=== PATIENT | male | born 1955 | race Caucasian/White ===

== ENCOUNTER 2018-08-23 00:51 | Emergency (ER) | payer OTHER ==
[~2018-08-23] VITALS: Ht 188 cm; Wt 107.5 kg
[2018-08-23 01:14] VITALS: Ht 188 cm; Wt 107.5 kg
[2018-08-23 03:40] VITALS: BP 137/90
== END 2018-08-23 03:40 | disposition home or self-care (01) ==
LOC: ED 00:51
DX: R33.9 Retention of urine, unspecified (principal); K59.00 Constipation, unspecified; G89.29 Other chronic pain; I10 Essential (primary) hypertension; E11.9 Type 2 diabetes mellitus without complications; E78.00 Pure hypercholesterolemia, unspecified; Z88.5 Allergy status to narcotic agent
CPT/HCPCS: J1885

== ENCOUNTER 2020-07-22 13:39 | Emergency (ER) | payer OTHER ==
[~2020-07-22] VITALS: Ht 185.4 cm; Wt 113.4 kg
[~2020-07-22 13:39] MED LIST: ATORVASTATIN CA80 M1; COLACE100 MG PO; CYCLOBENZAPRINE10 M1 PO; CYCLOBENZAPRINE10 MG; FLOMAX0.4 MG PO; HYDROXYZIN10 MG/5 M2; HYDROXYZIN10 MG/5 M2 PO; IBU800 M2 PO; JANUVIA100 M1; LIPITOR80 MG GT; LOT10; LOTENSIN PO; OXYCODONE HCL20 M1; OXYCODONE HCL20 M1 PO; PANTOPRAZOLE SO40 M1; PROTONIX40 MG/Pac1 PO; SERTRALINE H20 MG/ML; ZOLOFT50 MG PO
[2020-07-22 13:47] VITALS: Ht 185.4 cm; Wt 113.4 kg
[2020-07-22 14:30] LABS: CALCIUM 8.8 mg/dL (8.5-10.1); CHLORIDE SERUM 102 mmol/L (98-107); CREATININE SERUM 0.9 mg/dL (0.7-1.3); GFR1 > 60 mL/min; GLUCOSE SERUM 230 mg/dL (74-106); POTASSIUM SERUM 4.3 mmol/L (3.5-5.1); SODIUM SERUM 138 mmol/L (136-145)
[2020-07-22 14:34] LABS: ALBUMIN 3.5 g/dL (3.4-5.0); ALKALINE PHOSPHATASE 165 U/L (46-116); ALT/SGPT 79 U/L (16-63); AST/SGOT 26 U/L (15-37); BILIRUBIN TOTAL 0.2 mg/dL (0.20-1.00); LIPASE 273 IU/L (73-393); TOTAL PROTEIN, SERUM 7.5 g/dL (6.4-8.2)
[2020-07-22 14:36] LABS: BASOPHIL % 0.6 % (0.2-1.5); PLATELET COUNT 230 x10^3mcL (152-348); RED CELL DISTRIBUTION WIDTH 14.5 % (12.1-16.2)
[2020-07-22 16:04] LABS: microscopic required? NO
[2020-07-22 16:16] LABS: UA SPECIFIC GRAVITY >=1.030 (1.005-1.035); urine erythrocyte NEGATIVE (NEGATIVE)
[2020-07-22 17:43] VITALS: BP 134/84
== END 2020-07-22 17:43 | disposition home or self-care (01) ==
LOC: ED 13:39
PROVIDERS: Emergency Medicine
DX: R10.31 Right lower quadrant pain (principal); I88.0 Nonspecific mesenteric lymphadenitis; G89.29 Other chronic pain; M54.9 Dorsalgia, unspecified; I10 Essential (primary) hypertension; M19.90 Unspecified osteoarthritis, unspecified site; E78.00 Pure hypercholesterolemia, unspecified; F17.210 Nicotine dependence, cigarettes, uncomplicated; E11.9 Type 2 diabetes mellitus without complications; Z88.5 Allergy status to narcotic agent
CPT/HCPCS: 99406; J1200; J1885